=== PATIENT | male | born 1965 | race Hispanic/Latino ===

== ENCOUNTER 2018-10-08 09:38 | Day surgery (SDC) | payer MEDICARE ==
[~2018-10-08] VITALS: Ht 160 cm; Wt 78.9 kg
[2018-10-08] VITALS (7 sets, daily range): BP systolic 116–157; BP diastolic 51–70
[~2018-10-08 09:38] MED LIST: SODIUM CHLORIDE 0.9% 1000ML 1,000 ML IV ONE
[2018-10-08] MEDS ORDERED: ASPI-1026 PO (10:29)
[2018-10-08] MEDS ORDERED: BP (10:29)
[2018-10-08] MEDS ORDERED: CHOLESTEROL (10:29)
[2018-10-08] MEDS ORDERED: HEART MED (10:29)
[2018-10-08] MEDS ORDERED: OMEPRAZOLE (10:29)
[2018-10-08] MEDS ORDERED: PROPOFOL 1000 MG/100 ML 100 ML IV ONE (11:02)
[2018-10-08] MEDS ORDERED: ATROPINE SULFATE 0.1 MG/ML 10 ML SYG IVP ONE (11:03)
[2018-10-08] MEDS ORDERED: SUCCINYLCHOLINE CHLORIDE 20 MG/ML 10 ML VIAL ONE (11:03)
[2018-10-08] MEDS ORDERED: GLYCOPYRROLATE 0.2 MG/ML 5 ML VIAL ONE (11:03)
[2018-10-08] MEDS ORDERED: LIDOCAINE HCL 1% 20 ML VIAL ONE (11:05)
== END 2018-10-08 12:30 | disposition home or self-care (01) ==
LOC: ENDO 09:38 → DAH 09:38 → ENDO 12:30
PROVIDERS: ATTEND Internal Medicine
DX: K57.30 Diverticulosis of large intestine without perforation or abscess without bleeding (principal); K64.0 First degree hemorrhoids; R19.5 Other fecal abnormalities; E78.5 Hyperlipidemia, unspecified; E11.22 Type 2 diabetes mellitus with diabetic chronic kidney disease; I12.9 Hypertensive chronic kidney disease with stage 1 through stage 4 chronic kidney disease, or unspecified chronic kidney disease; N18.9 Chronic kidney disease, unspecified; Z79.899 Other long term (current) drug therapy; Z98.890 Other specified postprocedural states; Z68.31 Body mass index [BMI] 31.0-31.9, adult
CPT/HCPCS: 45378; 82948 ×2; A4606; J0330; J0461; J2704; J7030; J3490